=== PATIENT | female | born 1950 | race Caucasian/White ===

== ENCOUNTER 2018-07-08 08:32 | Outpatient (CLI) | payer MEDICARE, BC | END 2018-07-08 08:33 | disposition home or self-care (01) | LOC: CTENTCT 08:32 | PROVIDERS: ATTEND Specialist | DX: J32.8 Other chronic sinusitis (principal) | CPT/HCPCS: 70486 ==

== ENCOUNTER 2020-03-21 09:47 | Emergency (ER) | payer MEDICARE, BC ==
[2020-03-21] MEDS ORDERED: Acetaminophen 500 MG TAB ONE (11:28)
--- NOTE | 2020-03-21 11:37 | CT ---
EXAM: CT cervical spine PROVIDED CLINICAL HISTORY: Injury after a fall. TECHNIQUE: Contiguous axial CT images are obtained through the cervical spine from the skull base to the T2-3 le lucy. Sagittal and coronal reformatted images are provided. COMPARISON: None FINDINGS: There is slight anterolisthesis of C3 on C4, C4 on C5, and C7 on T1. Prominent facet degenerative aliyah nges are seen at this level which likely accounts for these findings. There are multilevel degenerative changes seen in the cervical spine with multilevel facet degenerati ve changes present. There are multilevel osteophytes noted. There is narrowing of the intervertebral disc spaces at all levels of the cervical spine greatest at the C5-6 and C6-C7 levels. There is moderate to severe left-sided neural foraminal narrowing at C2-3 level due to uncinate process hypertrophy and facet hypertrophic changes. Severe bilateral neural foraminal narrowing is pr esent at C3-4 again related facet hypertrophic changes and uncinate process hypertrophy. Severe left and mild/moderate right-sided neural foraminal narrowing is present at C4-5 level, severe left a nd moderate to severe right-sided neural foraminal narrowing at C5-6, and mild bilateral neural foraminal narrowing at C6-7 level. No prevertebral soft tissue swelling apparent. Visualized lung apices appear clear. There is a calcification seen in the left lobe of thyroid gland with adjacent small hypodense nodule. There is artifact seen extending through this region which limits adequate evaluation. This is very small in size, but follow-up thyroid ultrasound is suggested. IMPRESSION: 1. Subcentimeter hypodense nodule left lobe of thyroid gland with associated calcification. Follow-up thyroid ultrasound is recommended. 2. Multilevel degenerative changes including with moderate to severe degrees of neural foraminal narr owing throughout cervical spine as described above. 3. Trace anterolisthesis at C3-4, C4-5, and C7-T1 levels related to facet degenerative changes. 4. No fracture or traumatic subluxation is seen..
--- NOTE | 2020-03-21 11:43 | CT ---
CT BRAIN WITHOUT CONTRAST: Date: 03/21/2020 HISTORY: Fall. FINDINGS: No evidence of acute infarct, hemorrhage, midline shift, or abnormal extra-axial fluid collections ar e seen. The ventricular size is appropriate and the basilar cisterns are patent. The bony calvarium i s intact. The visualized paranasal sinuses and mastoid air cells are well aerated. There is a soft ti ssue contusion in the left frontal scalp. IMPRESSION: No CT evidence of acute intracranial process. POS: AH
--- NOTE | 2020-03-21 11:45 | CT ---
CT FACIAL BONES WITHOUT CONTRAST: Date: 03/21/2020 HISTORY: Fall, pain in left forehead. FINDINGS: The facial bones appear intact. The visualized paranasal sinuses and mastoid air cells are well aerat ed. No air fluid levels are seen. No temporomandibular dislocation is identified. There is soft tissu e contusion in the left frontal scalp. No retrobulbar hematoma or proptosis seen. The extraocular mus culature is bilaterally symmetric. IMPRESSION: No CT evidence of facial bone fracture. POS: AH
== END 2020-03-21 13:00 | disposition home or self-care (01) ==
LOC: ERS 09:47
DX: S00.83XA Contusion of other part of head, initial encounter (principal); S00.31XA Abrasion of nose, initial encounter; E04.1 Nontoxic single thyroid nodule; E78.5 Hyperlipidemia, unspecified; I10 Essential (primary) hypertension; F32.9 Major depressive disorder, single episode, unspecified; Z79.899 Other long term (current) drug therapy; W01.0XXA Fall on same level from slipping, tripping and stumbling without subsequent striking against object, initial encounter
CPT/HCPCS: 70450; 70486; 72125

== ENCOUNTER 2020-04-01 08:44 | Outpatient (CLI) | payer MEDICARE, BC, OTHER ==
[2020-04-01 16:37] LABS: SARS-CoV-2 MS2 Positive; SARS-CoV-2 N Gene Negative; SARS-CoV-2 S Gene Negative; SARS-CoV-2 by NAA Not Detected (NotDetected); SARS-CoV-2 orf1ab Negative
== END 2020-04-01 08:45 | disposition home or self-care (01) ==
LOC: LABBT 08:44
PROVIDERS: ATTEND Internal Medicine
DX: Z20.828 Contact with and (suspected) exposure to other viral communicable diseases (principal)
CPT/HCPCS: 87635; U0003

== ENCOUNTER 2020-04-04 12:23 | Day surgery (SDC) | payer MEDICARE, BC ==
[2020-04-04] MEDS ORDERED: Lidocaine 1% PF 5 ML VIAL ONE (13:20)
[2020-04-04] MEDS ORDERED: Sodium Bicarbonate 2.5 MEQ/5 ML VIAL ONE (13:20)
[2020-04-04 13:39] VITALS: BP 113/59; TEMP 97.9
--- NOTE | 2020-04-04 14:22 | ULT ---
PROCEDURE: US Thyroid Needle Bx PROVIDED CLINICAL HISTORY: Left thyroid nodule COMPARISON: Thyroid ultrasound obtained on 03/26/2020 TECHNIQUE: The procedure including the risks and complications were explained to the patient, and informed conse nt was obtained. Patient was placed on the sonography table in the supine position. Limited sonographic evaluation of the left lobe of the thyroid gland was performed. Previously described hypo echoic nodule with coarse central calcification was localized within the mid left thyroid gland. An area was marked and then meticulously prepped and draped in usual sterile fashion. The skin and subcutaneous tissues overlying the nodule were infiltrated with buffered 1% lidocaine fo r local anesthesia. Utilizing concurrent real-time ultrasound guidance, a total of 4 fine-needle aspiration specimens were obtained utilizing 25-gauge needles. Follow-up fine-needle aspiration image s demonstrate no fluid adjacent to the thyroid gland or findings to suggest a hematoma. Hemostasis was achieved with direct pressure, and a dry sterile dressing was placed. Ice pack was the n placed over the site of fine-needle aspiration. Patient tolerated the procedure well and without immediate complication. IMPRESSION: Technically successful ultrasound-guided fine-needle aspiration of a left thyroid nodule. Pathology r esults are currently pending.
[2020-04-04] MEDS ORDERED: FLU VACC QS2020-21(65YR UP)/PF 240 MCG/0.7 ML SYRINGE IM ONE (14:30)
== END 2020-04-04 13:55 | disposition home or self-care (01) ==
LOC: ULT 12:23
PROVIDERS: ATTEND Internal Medicine
PROC: 0G9G3ZX Drainage of Left Thyroid Gland Lobe, Percutaneous Approach, Diagnostic (ICD-10-PCS; principal; 2020-04-04)
DX: E04.1 Nontoxic single thyroid nodule (principal); J45.909 Unspecified asthma, uncomplicated; I10 Essential (primary) hypertension; F32.9 Major depressive disorder, single episode, unspecified; E66.9 Obesity, unspecified; Z68.33 Body mass index [BMI] 33.0-33.9, adult; Z79.1 Long term (current) use of non-steroidal anti-inflammatories (NSAID); Z79.82 Long term (current) use of aspirin; Z79.899 Other long term (current) drug therapy; Z88.0 Allergy status to penicillin; Z88.8 Allergy status to other drugs, medicaments and biological substances
CPT/HCPCS: 60100; 76942; 88173

== ENCOUNTER 2021-09-12 20:09 | Emergency (ER) | payer MEDICARE, BC ==
[2021-09-12] MEDS ORDERED: Boostrix 0.5 ML (Tdap) VIAL ONE (21:07)
[2021-09-12] MEDS ORDERED: Ketorolac Tromethamine 30 MG/ML VIAL ONE (21:07)
[2021-09-12] MEDS ORDERED: Bacitracin 1 PK ONE ×2 (21:07→21:09)
== END 2021-09-12 21:50 | disposition home or self-care (01) ==
LOC: ERS 20:09
DX: T24.211A Burn of second degree of right thigh, initial encounter (principal); T24.212A Burn of second degree of left thigh, initial encounter; T31.0 Burns involving less than 10% of body surface; X10.0XXA Contact with hot drinks, initial encounter; E78.5 Hyperlipidemia, unspecified; I10 Essential (primary) hypertension; Z79.82 Long term (current) use of aspirin; Z79.899 Other long term (current) drug therapy; Z23 Encounter for immunization
CPT/HCPCS: 16020; 90471; 90715; 96372; J1885

== ENCOUNTER 2022-09-11 09:49 | Outpatient (CLI) | payer MEDICARE, BC | END 2022-09-11 09:50 | disposition home or self-care (01) | LOC: BICMAMMO 09:49 | PROVIDERS: ATTEND Internal Medicine | DX: Z12.31 Encounter for screening mammogram for malignant neoplasm of breast (principal) | CPT/HCPCS: 77063; 77067 ==

== ENCOUNTER 2023-01-11 11:21 | Outpatient (CLI) | payer MEDICARE, BC ==
[2023-01-11 12:58] LABS: #Basophils 0.1 10x3/uL (0.0-0.2); #Eosinphils 0.8 10x3/uL (0.0-0.5); #Neutrophils 7.2 10x3/uL (1.5-8.4); %Basophils 0.8 % (0.0-2.0); %Eosinophils 6.6 % (0.0-6.0); %Lymphocytes 22.4 % (18.0-47.0); %Monocytes 8.4 % (0.0-10.0); %Neutrophils 61.6 % (40.0-75.0); Hemoglobin 13.3 g/dL (12.0-15.5); Mean Corpuscular HGB CONC 31.6 g/dL (32.0-36.0); Mean Corpuscular Hemoglobin 27.9 pg (27.0-33.0); Mean Corpuscular Volume 88.3 fl (81.6-98.3); Mean Platelet Volume 8.7 fl (7.4-10.4); Platelet Count 325 10x3/uL (150-450); RBC Distribution Width 14.1 % (11.5-14.5); Red Blood Cell (RBC) Count 4.77 10x6/uL (3.90-5.03); White Blood Cell (WBC) Count 11.8 10x3/uL (3.5-10.5)
[2023-01-11 13:12] LABS: Anion Gap 17 mmol/L (10-20); BUN (Urea Nitrogen) 21 mg/dL (9.8-20.1); Calc. Creatinine Clearance 0 mL/min (70-130); Calcium 9.2 mg/dL (7.8-10.44); Carbon Dioxide 26 mmol/L (23-31); Chloride 101 mmol/L (98-107); Estimated GFR 65; Glucose 98 mg/dL (83-110); Sodium 140 mmol/L (136-145)
== END 2023-01-11 11:22 | disposition home or self-care (01) ==
LOC: LABBT 11:21
PROVIDERS: ATTEND Orthopaedic Surgery
DX: Z01.818 Encounter for other preprocedural examination (principal); M12.811 Other specific arthropathies, not elsewhere classified, right shoulder
CPT/HCPCS: 80048; 85025; 93005; 93010

== ENCOUNTER 2023-01-14 07:27 | Observation (INO) | payer MEDICARE, BC ==
[2023-01-14] MEDS ORDERED: Sodium Chloride 0.9% 100 ML ONE ×2 (07:49→09:39)
[2023-01-14] MEDS ORDERED: Tranexamic Acid 1,000 MG/10 ML VIAL ONE (07:49)
[2023-01-14] MEDS ORDERED: Vancomycin (BATCH) 1.5 GRAM/300 ML BAG ONE (07:49)
[2023-01-14] MEDS ORDERED: Ropivacaine 0.2% HCl/PF 20 ML ONE (08:15)
[2023-01-14] MEDS ORDERED: Ropivacaine 0.5% HCl/PF (150 MG/30 ML VIAL) ONE (08:15)
[2023-01-14] MEDS ORDERED: Midazolam HCl 2 mg/2 ml Vial ONE (08:15)
[2023-01-14] MEDS ORDERED: fentaNYL 50 mcg/mL 1 mL Vial ONE ×2 (08:15→12:34)
[2023-01-14] MEDS ORDERED: Acetaminophen 500 MG TAB ONE (08:16)
[2023-01-14] MEDS ORDERED: HYDROcodone/Acetaminophen 7.5/325 mg Tablet PO PRN ×2 (09:16)
[2023-01-14] MEDS ORDERED: fentaNYL PF 100 MCG/2 ML SYRINGE ONE (09:22)
[2023-01-14] MEDS ORDERED: fentaNYL 50 mcg/mL 1 mL Vial SLOW IVP PRN (09:29)
[2023-01-14] MEDS ORDERED: traMADol HCl 50 MG TAB PO PRN (09:30)
[2023-01-14] MEDS ORDERED: Zolpidem Tartrate 5 MG TAB PO PRN (09:30)
[2023-01-14] MEDS ORDERED: Ondansetron PF 4 MG/2 ML Vial IVP PRN (09:30)
[2023-01-14] MEDS ORDERED: Promethazine HCl 25 MG/ML VIAL IM PRN (09:30)
[2023-01-14] MEDS ORDERED: HYDROcodone/Acetaminophen 5/325 mg Tablet PO PRN (09:30)
[2023-01-14] MEDS ORDERED: Ropivacaine 0.2% 550 ML 550 ML NERVE BLCK SCH (09:30)
[2023-01-14] MEDS ORDERED: LevoFLOXacin 500 mg/D5W 100 ML BAG ONE (09:39)
[2023-01-14] MEDS ORDERED: CEFAZOLIN 2 GM VIAL ONE (09:39)
[2023-01-14] MEDS ORDERED: Glycopyrrolate 0.2 MG/ML 5 ML SYRINGE ONE (09:40)
[2023-01-14] MEDS ORDERED: Ondansetron PF 4 MG/2 ML Vial ONE (09:40)
[2023-01-14] MEDS ORDERED: Rocuronium Bromide 10 MG/ML (10ML VIAL) ONE (09:40)
[2023-01-14] MEDS ORDERED: Dexamethasone 20 MG/5 ML VIAL ONE (09:40)
[2023-01-14] MEDS ORDERED: NEOSTIGMINE 3 MG/3 ML SYR 3 MG/3 ML SYRINGE ONE (09:40)
[2023-01-14] MEDS ORDERED: PHENYLEPHRINE-NS 100 MCG/ML 10 ML SYRINGE ONE (09:40)
[2023-01-14] MEDS ORDERED: PROPOFOL 200 MG/20 ML VIAL ONE (09:40)
[2023-01-14] MEDS ORDERED: SUGAMMADEX SODIUM 200 MG/2 ML VIAL ONE (11:47)
[2023-01-14] MEDS ORDERED: Ketorolac Tromethamine 30 MG/ML VIAL IVP SCH (12:00)
[2023-01-14] MEDS: Ketorolac Tromethamine 30 MG/ML VIAL IVP SCH ×3 (16:37→23:06)
[2023-01-14] MEDS: Lactated Ringer's 1,000 ML IV SCH ×2 (17:11→17:12)
[2023-01-14] MEDS: CEFAZOLIN 2 GM in Sodium Chloride 0.9% 100 ML IVPB SCH (17:16)
[2023-01-14 17:38] VITALS: BMI 35.7
[2023-01-15] MEDS: CEFAZOLIN 2 GM in Sodium Chloride 0.9% 100 ML IVPB SCH (01:50)
[2023-01-15] MEDS: HYDROcodone/Acetaminophen 5/325 mg Tablet PO PRN ×2 (02:05→16:09)
[2023-01-15] MEDS: Lactated Ringer's 1,000 ML IV SCH ×3 (03:23→15:49)
[2023-01-15] MEDS: traMADol HCl 50 MG TAB PO PRN ×2 (04:22→14:02)
[2023-01-15] MEDS: Ketorolac Tromethamine 30 MG/ML VIAL IVP SCH ×4 (05:53→23:28)
[2023-01-15] MEDS: Levothyroxine Sodium 100 MCG TAB PO SCH (05:54)
[2023-01-15] MEDS: Metamucil PACK PO SCH (10:31)
[2023-01-15] MEDS: Valsartan 80 MG TAB PO SCH (10:32)
[2023-01-15] MEDS: Atorvastatin Calcium 20 MG TAB PO SCH (10:32)
[2023-01-15] MEDS: Hydrochlorothiazide 25 MG TAB PO SCH (10:32)
[2023-01-15] MEDS: Aspirin Chewable 81 MG TAB PO SCH (10:32)
[2023-01-15] MEDS: Venlafaxine HCl XR 150 MG CAP PO SCH (10:33)
[2023-01-15] MEDS: Cholecalciferol 1,000 UNITS (25 MCG) TAB PO SCH (10:33)
[2023-01-16] MEDS: traMADol HCl 50 MG TAB PO PRN (00:59)
[2023-01-16 04:27] VITALS: TEMP 97.9
[2023-01-16 04:43] LABS: #Basophils 0.1 thou/uL (0.0-0.2); #Eosinphils 0.4 thou/uL (0.0-0.7); #Monocytes 1.3 thou/uL (0.11-0.59); %Basophils 0.5 % (0.0-1.0); %Eosinophils 3.2 % (0.0-10.0); %Neutrophils 70.1 % (42.0-75.0); Hematocrit 34.3 % (36.0-47.0); Hemoglobin 10.8 g/dL (12.0-16.0); Mean Corpuscular HGB CONC 31.5 g/dL (32.0-36.0); Mean Corpuscular Hemoglobin 28.6 pg (27.0-31.0); Mean Corpuscular Volume 90.7 fl (78.0-98.0); Mean Platelet Volume 8.4 fL (7.4-10.4); Platelet Count 209 10x3/uL (130-400); RBC Distribution Width 14.5 % (11.5-14.5); Red Blood Cell (RBC) Count 3.78 mill/uL (4.20-5.40); White Blood Cell (WBC) Count 12.9 10x3/uL (4.8-10.8)
[2023-01-16] MEDS: Levothyroxine Sodium 100 MCG TAB PO SCH (05:03)
[2023-01-16] MEDS: Ketorolac Tromethamine 30 MG/ML VIAL IVP SCH (05:04)
[2023-01-16 05:07] LABS: ALT (SGPT) Less than 7 U/L (8-55); AST (SGOT) 16 U/L (5-34); Albumin 3.2 g/dL (3.4-4.8); Alkaline Phosphatase 97 U/L (40-110); Anion Gap 12 mmol/L (10-20); BUN (Urea Nitrogen) 16 mg/dL (9.8-20.1); Bilirubin, Total 0.3 mg/dL (0.2-1.2); Calc. Creatinine Clearance 82 mL/min (70-130); Calcium 8.6 mg/dL (7.8-10.44); Carbon Dioxide 24 mmol/L (23-31); Chloride 104 mmol/L (98-107); Estimated GFR 64; Globulin 2.5 g/dL (2.4-3.5); Glucose 105 mg/dL (83-110); Potassium 3.9 mmol/L (3.5-5.1); Protein, Total 5.7 g/dL (5.8-8.1); Sodium 136 mmol/L (136-145)
[2023-01-16 05:44] LABS: Troponin I Less than 0.010 ng/mL (< 0.028)
[2023-01-16 08:00] VITALS: BP 160/93
[2023-01-16] MEDS: Venlafaxine HCl XR 150 MG CAP PO SCH (08:19)
[2023-01-16] MEDS: Valsartan 80 MG TAB PO SCH (08:19)
[2023-01-16] MEDS: Lactated Ringer's 1,000 ML IV SCH (08:19)
[2023-01-16] MEDS: Hydrochlorothiazide 25 MG TAB PO SCH (08:20)
[2023-01-16] MEDS: Cholecalciferol 1,000 UNITS (25 MCG) TAB PO SCH (08:20)
[2023-01-16] MEDS: Aspirin Chewable 81 MG TAB PO SCH (08:20)
[2023-01-16] MEDS: Atorvastatin Calcium 20 MG TAB PO SCH (08:20)
[2023-01-16] MEDS: HYDROcodone/Acetaminophen 5/325 mg Tablet PO PRN (08:27)
[2023-01-16] MEDS: Metamucil PACK PO SCH (08:34)
== END 2023-01-16 11:43 | disposition home health service (06) ==
LOC: SDC 07:27 → SURG A 09:16
PROVIDERS: ADMIT Orthopaedic Surgery; ATTEND Orthopaedic Surgery
PROC: 0RRJ00Z Replacement of Right Shoulder Joint with Reverse Ball and Socket Synthetic Substitute, Open Approach (ICD-10-PCS; principal; 2023-01-14)
DX: M12.811 Other specific arthropathies, not elsewhere classified, right shoulder (principal)
CPT/HCPCS: 23472; 71045; 83605; 83880; 84484; 85379; 97110 ×2; 97116 ×2; 97530; 97535; A4306; C1713 ×5; C1776 ×3; J3010 ×2; J3370; 36415; 80053; 84443; 85025; J1100; J1885; J1956; J2250; J2405; J2704; J2795; J3490; J7120